=== PATIENT | male | born 1965 ===

== ENCOUNTER 2024-01-27 12:51 | Emergency (ER) | payer OTHER, SELFPAY ==
--- NOTE | ~2024-01-27 | US_ITS ---
EXAMINATION: US venous doppler [facility] DATE: 01/27/2024 15:19 INDICATION: Lower limb pain. TECHNIQUE: Grayscale ultrasound images without and with compression and Doppler ultrasound images of the bilateral lower extremity veins were obtained. COMPARISON: None. FINDINGS: The visualized portions of right common femoral vein, profunda (deep) femoral vein, femoral vein, pop liteal vein, and greater saphenous vein outflow are patent. The right calf veins are not well visuali zed. The visualized portions of left common femoral vein, profunda femoral vein, femoral vein, popliteal v ein, peroneal veins, posterior tibial veins, and greater saphenous vein outflow are patent. IMPRESSION: 1. No deep venous thrombosis. Right calf veins not well visualized. Reviewed, dictated and finalized at location A.
--- NOTE | ~2024-01-27 | XR_ITS ---
XR hip BI 2V w AP pelvis DATE: 01/27/2024 17:37 INDICATION: Bilateral hip pain TECHNIQUE: AP pelvis. AP and lateral views of both hips COMPARISON: None FINDINGS: Status post bilateral total hip arthroplasty. Normal alignment at each hip prosthesis. No fracture or dislocation, periosteal reaction or bone destruction. Normal alignment at the sacroiliac joints and pubic symphysis. IMPRESSION: Bilateral total hip arthroplasty; no acute finding Reviewed, dictated and finalized at location A.
[2024-01-27 12:54] VITALS: BP 150/99; PULSE 102; RESP 16; TEMP 37.3; O2SAT 99
[2024-01-27 13:01] VITALS: BP 150/99; PULSE 104; RESP 16; O2SAT 99
[2024-01-27] MEDS: SODIUM CHLORIDE 0.9% IV 1,000 ML 999 ML IV CONT (14:31)
--- NOTE | 2024-01-27 14:38 | ED.EXTPRO ---
HPI - Extremity Problem General Chief complaint: Extremity Problem,Nontraumatic Stated complaint: lower extremity pain Time Seen by Provider: 01/27/24 13:56 Source: patient and EMS Mode of arrival: EMS Limitations: dementia History of Present Illness HPI Narrative: Patient is a 58 y/o male, with PMH of confusion/R hemiparesis r/t previous CVA, who presents to the ED via EMS with report of LLE pain. Patient is a resident of [facility]. Per [place] report, the patient has cameras in his room and was noted to be holding his LLE today and crying. Sent here for further evaluation. [place] staff was concerned for his hip. Denied any recent trauma or falls. Patient unable to provide any information. Repeatedly stating no no no no no. When asked if he had pain in his right leg, he reported yes. Related Data Allergies Allergy/AdvReac Type Severity Reaction Status Date / Time No Known Allergies Allergy Verified 01/27/24 16:13 Review of Systems Review of Systems: All systems reviewed & are unremarkable except as noted in HPI. All systems reviewed & are unremarkable except as noted in HPI and below ROS unobtainable: Yes unobtainable due to medical condition Exam Narrative: GENERAL: Chronically ill-appearing, thin, tearful. Resting comfortably on stretcher. HEAD: Normocephalic, atraumatic. ENT: MMs dry. RESPIRATORY: Airway patent, respirations nonlabored. CARDIOVASCULAR: Regular rate and rhythm without murmurs, rubs, or gallops. Peripheral pulses intact. MUSCULOSKELETAL: R sided hemiparesis, chronic. Contracture of RUE, flexed towards chest. Able to fully extend and flex BLE at knees/hips w/o obvious discomfort. Legs are equal in temperature and color bilaterally. Sensation is intact. Small scattered old healing bruises. No appreciable focal tenderness throughout lower extremities or hips bilaterally. No appreciable swelling. Capillary refill is intact throughout toes bilaterally. SKIN: Warm, dry, normal color. NEURO: Alert, follows some commands. Speech clear but repetitive with small vocabulary. No ataxic movements. PSYCHIATRIC: Labile mood, intermittently tearful. Course Vital Signs Vital signs: Vital Signs Temperature 99.2 F 01/27/24 12:54 Pulse Rate 102 H 01/27/24 12:54 Respiratory Rate 16 01/27/24 12:54 Blood Pressure 150/99 H 01/27/24 12:54 Pulse Oximetry 99 01/27/24 12:54 Oxygen Delivery Room Air 01/27/24 12:54 Temperature 97.8 F 01/27/24 15:55 Pulse Rate 92 01/27/24 15:55 Respiratory Rate 16 01/27/24 15:55 Blood Pressure 163/94 H 01/27/24 15:55 Pulse Oximetry 96 01/27/24 15:55 Oxygen Delivery Room Air 01/27/24 12:54 MDM - Extremity (Nontraumatic) MDM Narrative Medical decision making narrative: Patient presented to ED from local shelter facility with report of left lower extremity pain. Patient with history of dementia at baseline related to previous CVA. Unable to provide any useful information upon my evaluation. He does not appear to have any discomfort with movement of his lower extremities. No reported trauma or falls from shelter. He has good peripheral pulses. No evidence of ischemic limb. No significant appreciable swelling. No rashes or wounds. No evidence of cellulitis. Basic laboratory studies are fairly unremarkable. Does show leukocytosis of 15.0. No bandemia. CMP unremarkable. UA obtained and consistent with infection. Sent for cx. Will Tx. Venous Doppler ultrasound was obtained and negative for DVT. Hip/ pelvis x-ray was also obtained and negative for fracture. Patient will be discharged back to shelter. He has not voiced any other concerns or reported pain in his extremities during his ED stay. He has been stable throughout ED stay. VS have been stable. Recommended Tylenol/ice as needed, close f/u with PCP. Return precautions were discussed on discharge paperwork. D/C in stable condition. Medical Records Attestation: I r
[2024-01-27 14:39] LABS: Basophils Absolute Auto 0.1 K/mm3 (0.0-0.1); Basophils Percent Auto 0.5 % (0.2-1.2); Eosinophils Absolute Auto 0.1 K/mm3 (0-0.3); Eosinophils Percent Auto 0.9 % (0-4.4); Hematocrit 46.9 % (42.0-52.0); Hemoglobin 15.4 g/dL (14.0-18.0); Immature Granulocyte Absolute 0.12 K/mm3 (0.00-0.031); Immature Granulocyte Percent A 0.8 % (0-0.5); Lymphocytes Absolute Auto 2.45 K/mm3 (0.9-3.2); Lymphocytes Percent Auto 16.3 % (18.3-44.2); Mean Corpuscular HGB Conc 32.8 g/dl (32-36); Mean Corpuscular Hemoglobin 30.9 pg (26-34); Mean Platelet Volume 10.4 fl (7.4-10.4); Monocytes Absolute Auto 1.1 K/mm3 (0.1-0.6); Monocytes Percent Auto 7.3 % (2.6-8.5); Neutrophils Absolute Auto 11.1 K/mm3 (1.3-6.7); Neutrophils Percent Auto 74.2 % (45.5-73.1); Platelet Count Result 465 k/mm3 (150-375); Red Blood Count 4.99 M/mm3 (4.6-6.20); Red Cell Distribution Width 12.1 % (11.5-14.5)
--- NOTE | 2024-01-27 14:53 | PC.NURSE ---
senior maintenance technician at bedside. Will complete straight cath when tech is finished.
[2024-01-27 15:00] LABS: Alanine Aminotransferase 41 U/L (6-50); Albumin Level 4.6 g/dL (3.5-5.1); Alkaline Phosphatase 107 U/L (38-126); Anion Gap 10 mmol/L (4-12); Aspartate Amino Transferase 34 U/L (17-59); Bilirubin,Total 0.4 mg/dL (0.2-1.3); Blood Urea Nitrogen 15 mg/dL (9-20); Calcium 9.4 mg/dL (8.4-10.2); Carbon Dioxide 29 mmol/L (22-30); Chloride 100 mmol/L (98-107); Estimated CRCL calculation 123 ml/min; Estimated Glomerular Filt Rate > 60; Glucose 99 mg/dL (65-110); Potassium 4.3 mmol/L (3.4-5.0); Sodium 139 mmol/L (137-145)
[2024-01-27 15:55] VITALS: BP 163/94; PULSE 92; RESP 16; TEMP 36.6; O2SAT 96
--- NOTE | 2024-01-27 17:13 | PC.NURSE ---
Pt able to roll to both sides of the bed with little assistance. Pt did not show any signs of pain when moving all extremities. Pt daughter and POA (Charlene) updated over the phone by this RN at this time. All questions answered. Charlene relayed additional concern for pt left hip stating he has plates in his hips. Provider updated of daughter concern.
[2024-01-27 17:31] LABS: Add Urine Microscopic? YES; Appearance Urine Cloudy (Clear); Bacteria Urine None Seen /hpf; Bilirubin Urine Negative (Negative); Blood Urine Negative (Negative); Color Urine Yellow (Yellow); Glucose Urine UA Negative (Negative); Ketones Urine Negative (Negative); Leukocyte Esterase Ur Trace LEU/UL (Negative); Need Manual Microscopic Reviewed; Nitrate Urine Positive (Negative); Non Pathogenic Casts 0-2; Protein Urine Negative (Negative); RBC Urine 0-2 /hpf (0-2); Squamous Epithelial Cell Urine None Seen /hpf (Few)
[2024-01-27 17:32] LABS: Amorphous Sediment Urine Few
--- NOTE | 2024-01-27 19:15 | PC.NURSE ---
This RN spoke with pt JAXON and daughter Charlene at this time. Update given of pt diagnosis and that pt will be transferred by EMS back to facility. All questions answered at this time. This RN attempted to call report to [facility] with no answer.
--- NOTE | 2024-01-27 19:33 | PC.NURSE ---
Report called to Edilma ruiz [facility]. All questions answered at this time.
[2024-01-27 19:55] VITALS: BP 160/95; PULSE 96; RESP 16; O2SAT 99
[2024-01-27 20:30] VITALS: BP 162/85; PULSE 88; RESP 18; O2SAT 95
== END 2024-01-27 21:03 ==
PROVIDERS: Emergency Provider Physician Assistant; PCP Physician Assistant
DX: M79.605 Pain in left leg (principal); N30.00 Acute cystitis without hematuria; Z86.73 Personal history of transient ischemic attack (TIA), and cerebral infarction without residual deficits
CPT/HCPCS: 36415; 73521; 80053; 81001; 85025; 87077; 87086; 87088; 87181; 93970; 96360; 96361; 99284; J7030

== ENCOUNTER 2024-02-04 19:29 | Emergency (ER) | payer OTHER, SELFPAY ==
[2024-02-04] VITALS (7 sets, daily range): BP systolic 128–167; BP diastolic 89–98; PULSE 103–129; RESP 17–25; TEMP 37.1; O2SAT 96–100
--- NOTE | ~2024-02-04 | XR_ITS ---
EXAM: XR hip LT 2V w AP pelvis DATE: 02/04/2024 21:33 HISTORY: Pain . COMPARISON: 01/27/2024. FINDINGS: Osteopenia. Uncomplicated left hip arthroplasty hardware. Partially visualized uncomplicat ed appearing right hip arthroplasty hardware. Heterotopic bone formation about the bilateral hips. Pu nctate radiopaque debris surrounding the right hip, unchanged. No fracture or dislocation. The rectum is dilated to 9.0 cm by formed stool. IMPRESSION: No acute osseous finding in the pelvis or left hip. No radiographic evidence of hardware related consultation. Likely fecal impaction. Reviewed, dictated and finalized at location K.
--- NOTE | ~2024-02-04 | CT_ITS ---
EXAMINATION: CT abdomen pelvis w con DATE: 02/04/2024 21:58 INDICATION: abdominal pain vomiting TECHNIQUE: Computed tomography (CT) of the abdomen and pelvis was performed with 100 mL Omnipaque-350 intravenous contrast. Automated exposure control and iterative reconstruction technique were employe d. The dose-length product was 722.54 mGy-cm. COMPARISON: 09/22/2011. FINDINGS: Lower thorax: Dependent atelectasis. Coronary artery calcification. Liver: Normal. Biliary/Gallbladder: Gallbladder is normal. No bile duct dilation. Pancreas: No mass or duct dilation. Spleen: Normal. Adrenals:No mass. Kidneys: No suspicious mass, obstructing stone, or hydronephrosis. GI tract: Mild distal esophageal and gastric wall edema. The rectum is dilated to 8.[address] ool. No significant surrounding wall thickening or inflammatory change. No small bowel dilation. Norm al appendix. Mesentery/Peritoneum: No ascites, mass, or free air. Retroperitoneum: No mass. Atherosclerotic abdominal aortic and/or arterial calcifications. Pelvis: Partial obscuration from metal artifact. Partially distended urinary bladder with mild wall t hickening. Soft Tissues: Soft tissues and body wall unremarkable. Bones: No acute osseous finding. IMPRESSION: Mild esophagitis/gastritis. Cystitis versus chronic urinary lateral wall thickening from outlet obstruction. Correlate with urina lysis. Fecal impaction. Reviewed, dictated and finalized at location K. IMPRESSION: Mild esophagitis/gastritis. Cystitis versus chronic urinary lateral wall thickening from outlet obstruction . Correlate with urinalysis. Fecal impaction.
--- NOTE | ~2024-02-04 | XR_ITS ---
EXAM: XR shoulder RT min 2V DATE: 02/04/2024 21:33 HISTORY: Pain . COMPARISON: None available. FINDINGS: Decreased mineralization. No fracture or dislocation. No lytic or blastic lesion. Mild AC joint and glenohumeral joint osteoarthritis. No erosion or periosteal change. Soft tissues within nor mal limits. IMPRESSION: No acute osseous finding in the right shoulder. Reviewed, dictated and finalized at location K.
[2024-02-04] MEDS: SODIUM CHLORIDE 0.9% IV 1,000 ML 999 ML IV CONT (20:41)
[2024-02-04 21:21] LABS: Alanine Aminotransferase 35 U/L (6-50); Albumin Level 3.5 g/dL (3.5-5.1); Alkaline Phosphatase 72 U/L (38-126); Anion Gap 9 mmol/L (4-12); Aspartate Amino Transferase 31 U/L (17-59); Bilirubin,Total 0.3 mg/dL (0.2-1.3); Blood Urea Nitrogen 19 mg/dL (9-20); Carbon Dioxide 26 mmol/L (22-30); Chloride 106 mmol/L (98-107); Estimated CRCL calculation 168 ml/min; Estimated Glomerular Filt Rate > 60; Glucose 97 mg/dL (65-110); Lipase 443 U/L (23-300); Potassium 3.3 mmol/L (3.4-5.0); Sodium 141 mmol/L (137-145)
[2024-02-04 21:33] LABS: Troponin I 0.015 ng/mL (0.000-0.034)
--- NOTE | 2024-02-04 21:46 | ED.GENADULT ---
HPI - General Adult General Chief complaint: Nausea/Vomiting/Diarrhea Stated complaint: COFFEE GROUND EMESIS Time Seen by Provider: 02/04/24 20:33 History of Present Illness HPI narrative: Patient is gentleman presents emergency department with chief complaint of nausea vomiting. Per the halfway or patient had coffee-ground emesis she patient does have a PEG tube due to she difficulty with the treatment p.o. intake after a prior right-sided stroke patient star she seen reports he feels uncomfortable but history is limited due to the patient having limited medication ability S Related Data Allergies Allergy/AdvReac Type Severity Reaction Status Date / Time No Known Allergies Allergy Verified 01/27/24 16:13 Review of Systems Review of Systems: A 10 system review of systems was completed on the patient and is negative except for what is stated in the HPI. Nursing and ancillary documentation was reviewed. Exam Narrative: GENERAL: Well-appearing, well-nourished, and in no acute distress. HEAD: Normocephalic, atraumatic. EYES: PERRLA and EOMI. ENT: Nares clear, no rhinorrhea or epistaxis. Mucous membranes moist. NECK: Supple. CHEST: Clear to auscultation. No respiratory distress. HEART: Regular rate and rhythm. No murmur heard. Normal peripheral pulses. ABDOMEN: Soft, nontender, nondistended, normal active bowel sounds. Peg tube in place EXTREMITIES: Normal range of motion weakness on the right side at baseline. No edema. SKIN: Warm, dry, no rash. NEURO: No focal deficits. Alert and oriented to baseline. PSYCH: Normal mood and affect. Course Vital Signs Vital signs: Vital Signs Temperature 37.1 C 02/04/24 19:36 Temperature 37.1 C 02/04/24 19:36 Pulse Rate 104 H 02/04/24 22:00 Respiratory Rate 17 02/04/24 22:00 Blood Pressure 167/89 H 02/04/24 22:00 Pulse Oximetry 98 02/04/24 22:00 Medical Decision Making [facility] Narrative Medical decision making narrative: Differential diagnosis includes GI bleed, constipation, fecal impaction Laboratory studies showed a CBC with a white count of 17 CMP was within normal limits lactic acid was 1.0 lipase was 443 urinalysis showed a increased specific gravity but no evidence of urinary tract infection. X-rays were obtained of the hip in the shoulder as the patient was having pain there he showed no acute abnormalities CT scan of the abdomen pelvis showed fecal impaction The patient underwent an enema in the emergency department and is feeling much better the patient will be placed on a MiraLax regimen through his PEG tube Vital Signs Vital Signs: Vital Signs Temperature 37.1 C 02/04/24 19:36 Temperature 37.1 C 02/04/24 19:36 Pulse Rate 104 H 02/04/24 22:00 Respiratory Rate 17 02/04/24 22:00 Blood Pressure 167/89 H 02/04/24 22:00 Pulse Oximetry 98 02/04/24 22:00 Lab Data 02/04/24 22:14 02/04/24 21:00 Labs: Lab Results 02/04/24 02/04/24 02/04/24 Range/Units 21:00 22:14 22:41 WBC 17.0 H (4.5-10.0) K/mm3 RBC 3.92 L (4.6-6.20) M/mm3 Hgb 11.9 L D (14.0-18.0) g/dL Hct 37.4 L (42.0-52.0) % MCV 95.4 (80-100) fl MCH 30.4 (26-34) pg MCHC 31.8 L (32-36) g/dl RDW 12.4 (11.5-14.5) % Plt Count 387 H (150-375) k/mm3 MPV 11.2 H (7.4-10.4) fl Immature Gran % (Auto) 0.5 (0-0.5) % Neut % (Auto) 73.7 H (45.5-73.1) % Lymph % (Auto) 16.8 L (18.3-44.2) % [place] % (Auto) 8.2 (2.6-8.5) % Eos % (Auto) 0.4 (0-4.4) % Baso % (Auto) 0.4 (0.2-1.2) % Lymph # (Auto) 2.86 (0.9-3.2) K/mm3 [place] # (Auto) 1.4 H (0.1-0.6) K/mm3 Eos # (Auto) 0.1 (0-0.3) K/mm3 Baso # (Auto) 0.1 (0.0-0.1) K/mm3 Abs Immat Gran (auto) 0.09 H (0.00-0.031) K/mm3 Absolute Neuts (auto) 12.6 H (1.3-6.7) K/mm3 Absolute Nucleated RBC 0.000 (0.0-0.012) K/mm3 Nucleated RBC % 0.0 (0.0-0.2) % PT 14.6 (11.1-1
--- NOTE | 2024-02-04 21:54 | PC.NURSE ---
Due to pt having a PEG tube. Dr. Rai verbally ordered we do not need NG tube. Fredi verbally stated to irrigate his PEG tube to see if there was coffee ground/black emesis coloration.
[2024-02-04] MEDS: MORPHINE SULFATE (*CRX) 4 MG/ML INJ 2 MG IV PUSH (22:03)
[2024-02-04 22:35] LABS: Basophils Absolute Auto 0.1 K/mm3 (0.0-0.1); Basophils Percent Auto 0.4 % (0.2-1.2); Eosinophils Absolute Auto 0.1 K/mm3 (0-0.3); Eosinophils Percent Auto 0.4 % (0-4.4); Hematocrit 37.4 % (42.0-52.0); Hemoglobin 11.9 g/dL (14.0-18.0); Immature Granulocyte Absolute 0.09 K/mm3 (0.00-0.031); Immature Granulocyte Percent A 0.5 % (0-0.5); Lymphocytes Absolute Auto 2.86 K/mm3 (0.9-3.2); Lymphocytes Percent Auto 16.8 % (18.3-44.2); Mean Corpuscular HGB Conc 31.8 g/dl (32-36); Mean Corpuscular Hemoglobin 30.4 pg (26-34); Mean Corpuscular Volume 95.4 fl (80-100); Mean Platelet Volume 11.2 fl (7.4-10.4); Monocytes Absolute Auto 1.4 K/mm3 (0.1-0.6); Monocytes Percent Auto 8.2 % (2.6-8.5); Neutrophils Absolute Auto 12.6 K/mm3 (1.3-6.7); Neutrophils Percent Auto 73.7 % (45.5-73.1); Platelet Count Result 387 k/mm3 (150-375); Red Blood Count 3.92 M/mm3 (4.6-6.20); Red Cell Distribution Width 12.4 % (11.5-14.5)
[2024-02-04 22:56] LABS: INR 1.1; Partial Thromboplastin Time 26.3 Seconds (22.3-36.8); Prothrombin Time 14.6 Seconds (11.1-14.7)
[2024-02-05 00:16] VITALS: BP 135/87; PULSE 109; RESP 19; O2SAT 97
[2024-02-05 00:23] LABS: Add Urine Microscopic? NO; Appearance Urine Clear (Clear); Bilirubin Urine Negative (Negative); Blood Urine Negative (Negative); Color Urine Yellow (Yellow); Glucose Urine UA Negative (Negative); Ketones Urine Negative (Negative); Leukocyte Esterase Ur Negative LEU/UL (Negative); Nitrate Urine Negative (Negative); Protein Urine Negative (Negative); Specific Grav Ur > 1.045 (1.001-1.035); Urobilinogen Urine 0.2 mg/dL (<2.0); pH Urine 5.5 (5.0-9.0)
[2024-02-05 00:31] VITALS: BP 132/93; PULSE 109; RESP 21; O2SAT 98
[2024-02-05 00:46] VITALS: BP 124/85; PULSE 113; RESP 20
[2024-02-05 01:45] VITALS: BP 124/83; PULSE 104; RESP 21; TEMP 36.9; O2SAT 98
== END 2024-02-05 03:19 ==
PROVIDERS: Emergency Provider Emergency Medicine; PCP Physician Assistant
DX: K56.41 Fecal impaction (principal); I69.351 Hemiplegia and hemiparesis following cerebral infarction affecting right dominant side; Z93.1 Gastrostomy status; K29.70 Gastritis, unspecified, without bleeding; K20.90 Esophagitis, unspecified without bleeding
CPT/HCPCS: 36415; 73030; 73502; 74177; 80053; 81003; 83605; 83690; 84484; 85025; 85610; 85730; 86850; 86900; 86901; 96361; 96374; 99284; J2270; J7030; Q9967